=== PATIENT | female | born 1965 | race Caucasian/White ===

== ENCOUNTER → 2021-02-06 | Outpatient (CLI) | payer OTHER ==
[~2021-02-06] MED LIST: AMLODIPINE BESYL5 MG PO; ASPIR 8181 MG PO; CALCIUM + VITA1 EACH PO; CLARITIN10 MG PO; COD LIVER OIL1 EACH PO; COZAAR25 MG PO; FENOFIBRATE134 MG PO; FEOSOL325 MG PO; FLONASE ALLER15.8 ML; FOLIC ACID 1 MG1 MG PO; GLIMEPIRIDE4 MG PO; IBUPROFEN200 MG PO; JANUVIA100 MG PO; LANTUS SOL100 UNIT/1 SQ; LATANOPROST 0.7.5 ML EYEBOTH; METAMUCIL POWD798 GM PO; METFORMIN ER1000 MG PO; METFORMIN HCL1000 M1 PO; METOPROLOL SUCC50 MG PO; OMEPRAZOLE20 MG PO; PERCOCET 5/325 T1 EA PO; SYNTHROID25 MCG PO; TRICOR48 MG PO; VITAMIN C500 M3 PO; VOLTAREN EC 7575 MG PO
[2021-02-06 11:24] LABS: RED BLOOD COUNT 4.4 M/UL (4.00-5.10); WHITE BLOOD COUNT 7.6 K/UL (4.5-11.0)
[2021-02-06 11:39] LABS: BUN/CREATININE RATIO 14 (0-10)
== END ==
LOC: EDSTATUS 10:30 → OPSV2 10:30
PROVIDERS: Orthopaedic Surgery
DX: Z01.818 Encounter for other preprocedural examination (principal); M17.12 Unilateral primary osteoarthritis, left knee
CPT/HCPCS: 36415; 71046; 80048; 85025; 93005

== ENCOUNTER → 2021-02-19 | Outpatient (CLI) | payer OTHER ==
[~2021-02-19] MED LIST changes: +HYDROCODON-ACE1 EAC6 PO; +ULTRAM50 MG PO; +VAZALORE325 MG PO; +VITAMIN A; +[UNRECOGNIZED DRUG - OTHER]
[2021-02-19 10:39] LABS: BUN/CREATININE RATIO 13 (0-10)
== END ==
LOC: LAB 09:16
PROVIDERS: Orthopaedic Surgery
DX: Z01.812 Encounter for preprocedural laboratory examination (principal); M17.12 Unilateral primary osteoarthritis, left knee
CPT/HCPCS: 36415; 80048; 86850; 86900; 86901

== ENCOUNTER 2021-02-20 07:14 | Day surgery (SDC) | payer OTHER ==
[~2021-02-20] VITALS: Ht 165.1 cm; Wt 96.2 kg
[~2021-02-20 07:14] MED LIST changes: -HYDROCODON-ACE1 EAC6 PO; -ULTRAM50 MG PO; -VAZALORE325 MG PO; -VITAMIN A; -[UNRECOGNIZED DRUG - OTHER]
[2021-02-20] MEDS ORDERED: VITAMIN A (08:07)
[2021-02-20] MEDS ORDERED: [UNRECOGNIZED DRUG - OTHER] (08:07)
[2021-02-21] MEDS ORDERED: HYDROCODON-ACE1 EAC6 PO (07:03)
[2021-02-21] MEDS ORDERED: VAZALORE325 MG PO (07:03)
[2021-02-21] MEDS ORDERED: ULTRAM50 MG PO (07:03)
== END 2021-02-21 11:46 | disposition home or self-care (01) ==
LOC: OR 07:14 → EDSTATUS 07:30 → M/S 16:52 → OR 02-21 11:46
DX: M17.12 Unilateral primary osteoarthritis, left knee (principal); M79.4 Hypertrophy of (infrapatellar) fat pad; S83.112A Anterior subluxation of proximal end of tibia, left knee, initial encounter; S83.122A Posterior subluxation of proximal end of tibia, left knee, initial encounter; E11.9 Type 2 diabetes mellitus without complications; I10 Essential (primary) hypertension; Z79.82 Long term (current) use of aspirin; Z20.822 Contact with and (suspected) exposure to COVID-19; X58.XXXA Exposure to other specified factors, initial encounter; Y92.9 Unspecified place or not applicable
CPT/HCPCS: 73560; 76000; 82962; 97116-GP-CQ; 97161; 97166; 97530-GP-CQ; 97535; J0690; J1100; J1170; J1885; J2001; J2250; J2370; J2405; J2704; J2710; J2795; J3010; J7030; J7120